=== PATIENT | male | born 1955 | race Caucasian/White ===

== ENCOUNTER 2016-10-30 01:33 | Emergency (ER) | payer BC ==
[~2016-10-30] VITALS: Ht 177.8 cm; Wt 90.7 kg
[2016-10-30] MEDS ORDERED: METOCLOPRAMIDE HCL 10 MG/2 ML VIAL ONE (01:43)
[2016-10-30] MEDS ORDERED: ONDANSETRON HCL/PF 4 MG/2 ML VIAL ONE ×2 (01:43→02:53)
[2016-10-30] MEDS ORDERED: FAMOTIDINE/PF INJ 20 MG/2 ML VIAL IV ONE ×2 (01:43→02:00)
--- NOTE | 2016-10-30 01:55 | NUR ---
BB RA; ALCOHOL INTOXICATION. NAUSEA/ VOMIT. PT AOX3 RR EVEN AND UNLABORED. NO SOB NOTED. NAD NOTED. PT NOTED WITH EPISODE OF VOMITTING. PT PLACED ON MONITOR. PT NOT DIAPHORETIC. DR. MCKENZIE AT BEDSIDE FOR EVAL.
[2016-10-30] MEDS ORDERED: ONDANSETRON HCL/PF 4 MG/2 ML VIAL IVP ONE (02:00)
[2016-10-30] MEDS ORDERED: IV NS 0.9% 1,000 ML BAG IV ONE (02:00)
[2016-10-30] MEDS ORDERED: METOCLOPRAMIDE HCL 10 MG/2 ML VIAL IV ONE (02:00)
--- NOTE | 2016-10-30 02:45 | NUR ---
Patient is resting comfortably in bed with eyes closed. Easily aroused. VSS
[2016-10-30] MEDS ORDERED: ONDANSETRON HCL/PF 4 MG/2 ML VIAL IV ONE (03:00)
--- NOTE | 2016-10-30 04:19 | NUR ---
PT WITH STABLE GAIT. DR. MCKENZIE MADE AWARE.
--- NOTE | 2016-10-30 04:27 | NUR ---
IV removed. Catheter intact and site benign. Pressure and 4x4 applied to site. No bleeding noted. Patient discharged to home in stable condition. Written and verbal after care instructions given. Patient verbalizes understanding of instruction. ambulatory with a steady gait.
[2016-10-30 04:46] VITALS: BP 116/68
== END 2016-10-30 04:30 | disposition home or self-care (01) ==
LOC: ER 01:34
DX: K29.20 Alcoholic gastritis without bleeding (principal); F10.129 Alcohol abuse with intoxication, unspecified; I10 Essential (primary) hypertension; R79.89 Other specified abnormal findings of blood chemistry; Z88.8 Allergy status to other drugs, medicaments and biological substances
CPT/HCPCS: 82962-TC; A4606; J2405; J2765; J3490; J7030; Z7610